=== PATIENT | male | born 1940 | race Caucasian/White ===

== ENCOUNTER → 2020-11-26 | Outpatient (CLI) | payer OTHER, MEDICARE ==
[~2020-11-26] MED LIST: AMBIEN 5 MG TABL5 M1 PO; ATORVASTATIN CA40 MG PO; BAYER CHEWABLE81 MG PO; BENICAR 5 MG5 MG; BENICAR20 MG PO; BYSTOLIC 5 MG5 M1 PO; LEVSIN0.125 MG PO; MOBIC15 MG PO; OMEGA-31000 M1 PO; PERCOCET 5-3251 EACH PO; VENLAFAXIN75 MG/1 T2 PO; ZETIA10 MG PO; ZOFRAN ODT4 MG PO
== END ==
LOC: SJCVC 01:43
PROVIDERS: ATTEND Internal Medicine Cardiovascular Disease
DX: R94.31 Abnormal electrocardiogram [ECG] [EKG] (principal); I45.2 Bifascicular block; I11.9 Hypertensive heart disease without heart failure; I25.10 Atherosclerotic heart disease of native coronary artery without angina pectoris; E78.00 Pure hypercholesterolemia, unspecified; R09.89 Other specified symptoms and signs involving the circulatory and respiratory systems; F32.9 Major depressive disorder, single episode, unspecified; M19.90 Unspecified osteoarthritis, unspecified site; Z87.891 Personal history of nicotine dependence; Z79.82 Long term (current) use of aspirin; Z79.899 Other long term (current) drug therapy; Z82.49 Family history of ischemic heart disease and other diseases of the circulatory system; Z88.8 Allergy status to other drugs, medicaments and biological substances

== ENCOUNTER → 2020-12-04 | Outpatient (CLI) | payer OTHER, MEDICARE | LOC: SJCVCIMAG 09:51 | PROVIDERS: ATTEND Internal Medicine Cardiovascular Disease | DX: I65.23 Occlusion and stenosis of bilateral carotid arteries (principal); I45.10 Unspecified right bundle-branch block; I25.10 Atherosclerotic heart disease of native coronary artery without angina pectoris; E78.5 Hyperlipidemia, unspecified ==